=== PATIENT | female | born 1995 | race Hispanic/Latino ===

== ENCOUNTER 2025-03-27 19:27 | Emergency (ER) | payer BC ==
[~2025-03-27] VITALS: Ht 152.4 cm; Wt 78.9 kg
[2025-03-27 19:31] VITALS: PULSE 73; RESP 18; TEMP 97.8
[2025-03-27] MEDS ORDERED: CEPHALEXIN MONOHYDRATE 250 MG CAP PO SCH (20:00)
[2025-03-27] MEDS ORDERED: LIDOCAINE/PRILOCAINE 2.5-2.5% KIT TOP ONE (20:00)
[2025-03-27] MEDS: TRIMETHOPRIM/SULFAMETHOXAZOLE 160-800 MG TAB PO ONE (20:28)
[2025-03-27] MEDS: LIDOCAINE 1% W/EPINEPHRINE 20 ML VIAL INJ ONE (20:28)
[2025-03-27] MEDS: IBUPROFEN 400 MG TAB PO ONE (20:29)
[2025-03-27] MEDS ORDERED: BACTRIM DS TAB1 EACH PO (20:48)
[2025-03-27] MEDS ORDERED: CEPHALEXIN500 MG PO (20:48)
[2025-03-27] MEDS ORDERED: CEPHALEXIN MONOHYDRATE 250 MG CAP PO ONE (21:00)
[2025-03-27 21:10] VITALS: BP 134/85; O2SAT 99
== END 2025-03-27 21:02 | disposition home or self-care (01) ==
LOC: FSED 19:33
DX: N61.1 Abscess of the breast and nipple (principal)
CPT/HCPCS: 99284